=== PATIENT | male | born 1950 | race Caucasian/White ===

== ENCOUNTER → 2022-08-23 | Outpatient (CLI) | payer OTHER | END | disposition home or self-care (01) | LOC: RESCLI 11:34 | PROVIDERS: ATTEND Internal Medicine | DX: J44.9 Chronic obstructive pulmonary disease, unspecified (principal); I48.91 Unspecified atrial fibrillation; I10 Essential (primary) hypertension; E78.5 Hyperlipidemia, unspecified; F41.9 Anxiety disorder, unspecified; N52.9 Male erectile dysfunction, unspecified; Z82.49 Family history of ischemic heart disease and other diseases of the circulatory system; Z72.89 Other problems related to lifestyle; Z98.890 Other specified postprocedural states; Z79.899 Other long term (current) drug therapy ==

== ENCOUNTER → 2023-11-01 | Outpatient (CLI) | payer MEDICARE | END | disposition home or self-care (01) | LOC: RESCLI 16:10 | PROVIDERS: ATTEND Student in an Organized Health Care Education/Training Program | DX: I48.91 Unspecified atrial fibrillation (principal); J44.9 Chronic obstructive pulmonary disease, unspecified; I10 Essential (primary) hypertension; F41.9 Anxiety disorder, unspecified; E78.5 Hyperlipidemia, unspecified; Z98.890 Other specified postprocedural states; Z82.49 Family history of ischemic heart disease and other diseases of the circulatory system; Z79.01 Long term (current) use of anticoagulants; Z79.899 Other long term (current) drug therapy ==